=== PATIENT | male | born 1940 | race Caucasian/White ===

== ENCOUNTER 2016-12-13 11:24 | Inpatient (IN) | payer MEDICARE, OTHER ==
[~2016-12-13] VITALS: Ht 175.3 cm; Wt 71.2 kg
[~2016-12-13 11:24] MED LIST: ATOR10TA PO; FLUC100T8 PO; HYDR-3326 PO; ZOLP5TAB2 PO
--- NOTE | 2016-12-13 11:30 | NUR ---
BBRA FROM STREET: ETOH. PT STATES "DTs". NAD NOTED, VSS, RESP EVEN AND UNLABORED, WAITING FOR MD BARROS.
--- NOTE | 2016-12-13 12:20 | NUR ---
PA AT BS.
--- NOTE | 2016-12-13 12:41 | NUR ---
BLOOD SUGAR CHECKED - 138
--- NOTE | 2016-12-13 12:46 | NUR ---
CALLED MISSING PERSON DEPARTMENT, TO REPORT PARKENCE A POSIBLE FOUND MISSING PERSON. SHE STATES SHE WILL CALL FAMILY; I PROVIDED OUR ER # , SHE WILL FOLLOW UP
[2016-12-13 12:56] LABS: BASOPHILS % (AUTO) 0.4 % (0.0-2.0); EOSINOPHILS # (AUTO) 0.2 /CMM (0.0-0.7); EOSINOPHILS % (AUTO) 3.7 % (0.0-6.0); HEMATOCRIT 44 % (39-51); HEMOGLOBIN 14.2 g/dL (13.5-17.5); LYMPHOCYTES # (AUTO) 2.1 /CMM (0.8-4.8); LYMPHOCYTES % (AUTO) 32.6 % (20.0-44.0); MEAN CORPUSCULAR HEMOGLOBIN 27 PG (26.0-33.0); MEAN CORPUSCULAR HGB CONC 32 g/dl (31.0-36.0); MEAN CORPUSCULAR VOLUME 84 fL (80-96); MONOCYTES # (AUTO) 0.5 /CMM (0.1-1.30); MONOCYTES % (AUTO) 7.7 % (2.0-12.0); NEUTROPHILS # (AUTO) 3.7 /CMM (1.8-8.9); NEUTROPHILS % (AUTO) 55.6 % (43.0-81.0); PLATELET COUNT (AUTO) 381 /CMM (150-450); RDW COEFFICIENT OF VARIATION 13.3 (11.5-15.0); RED BLOOD CELL COUNT(AUTO) 5.23 MIL/uL (4.5-6.0); WHITE BLOOD COUNT (AUTO) 6.5 K/uL (4.3-11.0)
--- NOTE | 2016-12-13 12:57 | NUR ---
RECEIVED A CALL FROM PATIENT'S NIECE, SHE STATES SHE IS ON HER WAY TO [employer] PROCESS EXPERT PATIENT ETA 45 MIN
[2016-12-13 13:08] LABS: ALANINE AMINOTRANSFERASE 35 U/L (12-78); ALBUMIN 3.1 g/dL (3.4-5.0); ALKALINE PHOSPHATASE 71 U/L (46-116); ASPARTATE AMINOTRANSFERASE 31 U/L (15-37); BILIRUBIN,DIRECT 0.1 mg/dL (0.0-0.2); BILIRUBIN,TOTAL 0.3 mg/dL (0.2-1.0); CALCIUM, SERUM 8.4 mg/dL (8.5-10.1); CARBON DIOXIDE 28 mmol/L (21-32); CHLORIDE 104 mmol/L (98-107); GLUCOSE 150 mg/dL (74-106); POTASSIUM 4.5 mmol/L (3.5-5.1); SODIUM SERUM 136 mmol/L (136-145); TOTAL PROTEIN, SERUM 7.6 g/dL (6.4-8.2); UREA NITROGEN, BLOOD 16 mg/dL (7-18)
--- NOTE | 2016-12-13 13:20 | NUR ---
URINE SENT TO LAB.
[2016-12-13 13:46] LABS: APPEARANCE,URINE Clear (CLEAR); BILIRUBIN,URINE Negative (NEGATIVE); BLOOD, URINE Negative Ery/uL (NEGATIVE); COLOR,URINE Yellow (YELLOW); KETONES,URINE Negative (NEGATIVE); LEUKOCYTE ESTERASE ,URINE Negative (NEGATIVE); NITRITE, URINE Negative (NEGATIVE); PROTEIN,URINE Negative (NEGATIVE); UGLUCOSE 100 MG/DL mg/dL (NEGATIVE); UROBILINOGEN,URINE 0.2 EU/dL (0.2)
[2016-12-13] MEDS ORDERED: UNK BP MEDICATION (14:23)
[2016-12-13 14:47] LABS: ALCOHOL, BLOOD < 3 mg/dL (0-0); SALICYLATE 0.4 mg/dL (2.8-20.0)
[2016-12-13 15:25] LABS: ACETAMINOPHEN 0 ug/ml (10-30)
--- NOTE | 2016-12-13 15:49 | NUR ---
REPORT GIVEN TO DANIELE.
[2016-12-13 16:00] VITALS: BP 156/80
[2016-12-13] MEDS ORDERED: MAGNESIUM HYDROXIDE 30 ML UDC PO PRN (17:00)
[2016-12-13] MEDS ORDERED: MAG HYDROX/AL HYDROX/SIMETH 30 ML UDC PO PRN (17:00)
[2016-12-13] MEDS ORDERED: ACETAMINOPHEN 325 MG TABLET PO PRN (17:00)
[2016-12-13] MEDS ORDERED: TEMAZEPAM 7.5 MG CAPSULE PO PRN (17:00)
--- NOTE | 2016-12-13 18:34 | NUR ---
GPS RN: ADMITTED PATIENT FROM THE ED, ARRIVE TO THE FLOOR AT 1600 IN THE WHEELCHAIR. PATIENT IS ON HOLD FOR GRAVE DISABILITY. WAS FOUND SLEEPING ON THE STREET AND BIB EMT. UPON FACE TO FACE ASSESSMENT PATIENT IS A/O X3, WITH EPISODES OF CONFUSION, POOR HISTORIAN. PATIENT HAS NO BELONGINGS, NO CONTRABAND, BODY CHECK DONE, PICTURES TAKEN AND DOCUMENTED IN THE CHART. PATIENT REFUSED TO SIGN ADMITTING PAPERS, HOWEVER COOPERATIVE OTHERWISE. PATIENT'S NIECE, BISHNU IS PRESENT DURING ADMISSION. DR. YOST IS IN THE UNIT, ADMITTING ORDERS RECEIVED AND CARRIED OUT. DR. GREENWOOD MADE AWARE TO RECONCILE MEDICATION. WOUND CONSULT ORDERED, PATIENT'S VS STABLE, NO SS OF ACUTE DISTRESS, NO AGITATION. CONTINUE TO MONITOR THE PATIENT AND ENDORSE TO THE UPCOMING SHIFT.
[2016-12-13 20:00] VITALS: BP_SYST 118; BP_SYST 166; BP_DIAS 67; BP_DIAS 81
[2016-12-13] MEDS: LORAZEPAM 0.5 MG TABLET PO PRN (20:32)
[2016-12-13] MEDS: QUETIAPINE FUMARATE 25 MG TABLET PO SCH (21:52)
[2016-12-14 08:00] VITALS: BP 114/69
[2016-12-14 08:10] LABS: ALANINE AMINOTRANSFERASE 32 U/L (12-78); ALBUMIN 2.8 g/dL (3.4-5.0); ALKALINE PHOSPHATASE 69 U/L (46-116); ASPARTATE AMINOTRANSFERASE 26 U/L (15-37); BILIRUBIN,TOTAL 0.4 mg/dL (0.2-1.0); CALCIUM, SERUM 8.3 mg/dL (8.5-10.1); CARBON DIOXIDE 27 mmol/L (21-32); CHLORIDE 106 mmol/L (98-107); CREATININE 1.1 mg/dL (0.6-1.3); GLUCOSE 133 mg/dL (74-106); POTASSIUM 4.1 mmol/L (3.5-5.1); SODIUM SERUM 139 mmol/L (136-145); TOTAL PROTEIN, SERUM 6.8 g/dL (6.4-8.2); UREA NITROGEN, BLOOD 16 mg/dL (7-18)
[2016-12-14 08:27] LABS: CHOLESTEROL 155 mg/dL (<200); HDL CHOLESTEROL 40 mg/dL (40-60); LDL 98 mg/dL (0-99); TRIGLYCERIDES 129 mg/dL (30-150)
[2016-12-14] MEDS: ESCITALOPRAM OXALATE (10 MG) 10 MG TABLET PO SCH (09:33)
[2016-12-14] MEDS: Z GUARD REMEDY 2 OZ OINT TP SCH (09:33)
[2016-12-14 16:00] VITALS: BP 115/78
[2016-12-14 20:00] VITALS: BP 131/87
[2016-12-14] MEDS: QUETIAPINE FUMARATE 25 MG TABLET PO SCH (21:40)
--- NOTE | 2016-12-15 00:43 | NUR ---
Pt has been with flat affect & depressed mood but compliant with care w/o any promptings.
--- NOTE | 2016-12-15 00:44 | NUR ---
Pt has had one incident of loose BM so far on this shift & he is being monitored for the possibility of having diarrhea.
[2016-12-15 07:58] VITALS: BP 137/60
[2016-12-15] MEDS: ESCITALOPRAM OXALATE (10 MG) 10 MG TABLET PO SCH (08:29)
[2016-12-15] MEDS: Z GUARD REMEDY 2 OZ OINT TP SCH (08:29)
--- NOTE | 2016-12-15 14:51 | NUR ---
[id number]: NOTIFIED DR. GREENWOOD ABOUT MED RECONCILIATION NEEDS TO BE DONE. DR. GREENWOOD IS AWARE.
[2016-12-15 16:00] VITALS: BP 121/58
[2016-12-15] MEDS: NYSTATIN CREAM 15 GM TUBE TP SCH (16:08)
[2016-12-15 20:12] VITALS: BP 150/67
[2016-12-15] MEDS: QUETIAPINE FUMARATE 25 MG TABLET PO SCH (21:11)
[2016-12-16 08:15] VITALS: BP 142/83
[2016-12-16] MEDS: ESCITALOPRAM OXALATE (10 MG) 10 MG TABLET PO SCH (09:21)
[2016-12-16] MEDS: NYSTATIN CREAM 15 GM TUBE TP SCH ×2 (09:26→16:43)
[2016-12-16] MEDS: Z GUARD REMEDY 2 OZ OINT TP SCH (09:27)
--- NOTE | 2016-12-16 10:00 | NUR ---
[id number]: DR. GREENWOOD WANTS LIPID PANEL DONE FIRST. TO HOLD NORCO 5/325 MG PO Q6HR PRN AND LIPITOR 10 MG PO QHS.
[2016-12-16 10:44] LABS: CHOLESTEROL 181 mg/dL (<200); HDL CHOLESTEROL 40 mg/dL (40-60); LDL 118 mg/dL (0-99); TRIGLYCERIDES 166 mg/dL (30-150)
--- NOTE | 2016-12-16 11:34 | NUR ---
[id number]: NOTIFIED DR. GREENWOOD ABOUT LAB RESULTS ON 12/16/16: TRIGLYCERIDES= 166, LDL CHOLESTEROL MEASURED= 118. DR. GREENWOOD ALSO WANTS TO CONTINUE TO HOLD THE NORCO 5/325 MG AND LIPITOR 10 MG.
--- NOTE | 2016-12-16 15:40 | NUR ---
Initial Discharge Plan: Per patient, he resides alone in a house in [place]; [address]. [facility] [place] [address] / He could not recall his telephone number. He wishes to return home upon discharge. SW editorial intern left a message on Pts brothers phone . SW editorial intern encouraged pts brother to reach out to his assigned SW should he have any questions. SW to communicate with Patients brother Isaias Choi regarding most appropriate discharge plan. Patient will be provided with substance abuse referrals and smoking cessation resources prior to discharge. SW to help form a safe and proper discharge.
[2016-12-16 16:03] VITALS: BP 140/80
--- NOTE | 2016-12-16 17:50 | NUR ---
[id number]: NOTIFIED DR. GREENWOOD HEMOGLOBIN A1C = 8.3. PENDING RETURN PHONE CALL.
[2016-12-16] MEDS ORDERED: DEXTROSE 50%-WATER 50 ML DISP.SYRIN IV PRN (19:00)
[2016-12-16 19:53] VITALS: BP 142/83
[2016-12-16 20:00] VITALS: BP 145/89
[2016-12-16 20:09] VITALS: BP 145/89
[2016-12-16] MEDS: METFORMIN 500 MG TABLET PO SCH (20:25)
[2016-12-16] MEDS: BLOOD SUGAR DIAGNOSTIC 1 EACH STRIP IN SCH (21:58)
[2016-12-16] MEDS ORDERED: QUETIAPINE FUMARATE 25 MG TABLET PO SCH (22:00)
[2016-12-16] MEDS: INSULIN REGULAR, HUMAN 100 UNIT/ML 3 ML VIAL SQ PRN (22:05)
[2016-12-17 08:00] VITALS: BP 103/77
[2016-12-17] MEDS: METFORMIN 500 MG TABLET PO SCH ×2 (08:57→16:23)
[2016-12-17] MEDS: NYSTATIN CREAM 15 GM TUBE TP SCH ×2 (08:57→16:24)
[2016-12-17] MEDS: BLOOD SUGAR DIAGNOSTIC 1 EACH STRIP IN SCH ×4 (08:57→21:30)
[2016-12-17] MEDS: ESCITALOPRAM OXALATE (10 MG) 10 MG TABLET PO SCH (08:57)
[2016-12-17] MEDS: INSULIN REGULAR, HUMAN 100 UNIT/ML 3 ML VIAL SQ PRN ×4 (09:01→21:50)
[2016-12-17] MEDS: Z GUARD REMEDY 2 OZ OINT TP SCH (09:01)
--- NOTE | 2016-12-17 09:01 | NUR ---
[id number]: BLOOD SUGAR IS 140 MG/DL AND GAVE 2 UNITS OF REGULAR INSULIN
--- NOTE | 2016-12-17 13:02 | NUR ---
YUS-HS-PERXU; BLOOD SUGAR IS 181 MG/DL AND GAVE 3 UNITS OF REGULAR INSULIN.
[2016-12-17] MEDS: HYDROGEL DRESSING 90 GM TUBE TP SCH (15:10)
[2016-12-17 15:42] VITALS: BP 128/81
--- NOTE | 2016-12-17 17:27 | NUR ---
[id number]: BLOOD SUGAR IS 142 MG/DL AND GAVE 2 UNITS OF REGULAR INSULIN
[2016-12-17 19:58] VITALS: BP 132/61
[2016-12-17] MEDS ORDERED: QUETIAPINE FUMARATE 25 MG TABLET PO SCH (22:00)
[2016-12-18] MEDS: INSULIN REGULAR, HUMAN 100 UNIT/ML 3 ML VIAL SQ PRN ×4 (08:24→21:13)
[2016-12-18] MEDS: LORAZEPAM 0.5 MG TABLET PO PRN (08:25)
[2016-12-18] MEDS: BLOOD SUGAR DIAGNOSTIC 1 EACH STRIP IN SCH ×4 (08:25→21:07)
[2016-12-18] MEDS: HYDROGEL DRESSING 90 GM TUBE TP SCH (08:25)
[2016-12-18] MEDS: NYSTATIN CREAM 15 GM TUBE TP SCH ×2 (08:25→16:53)
[2016-12-18] MEDS: Z GUARD REMEDY 2 OZ OINT TP SCH (08:25)
[2016-12-18] MEDS: METFORMIN 500 MG TABLET PO SCH ×2 (08:26→16:57)
[2016-12-18] MEDS: ESCITALOPRAM OXALATE (10 MG) 10 MG TABLET PO SCH (08:28)
[2016-12-18 08:30] VITALS: BP 132/81
--- NOTE | 2016-12-18 14:34 | NUR ---
lumber yard worker faxed initial review packet to [address] [place] [address] ( / ) lumber yard worker will follow-up.
[2016-12-18 16:05] VITALS: BP 150/90
--- NOTE | 2016-12-18 19:30 | NUR ---
GPS RN NOTE, RECEIVED PATIENT AWAKE AND IN BED, NO S/S OR COMPLAINTS OF PAIN AT THIS TIME. PATIENT IS DISPLAYING NO S/S OF APPARENT DISTRESS AT THIS TIME. PATIENT BREATHING IS UNLABORED WITH EQUAL RISE AND FALL OF THE CHEST. PATIENT IS ALERT AND ORIENTED X 3 ON ROOM AIR WITH A SPO2 OF 96%. PATIENT IS CALM, ANXIOUS AT TIMES , COMPLIANT WITH MEDICATION, COOPERATIVE, HAS EPISODES OF CONFUSION AT TIMES, AND NEEDS REORIENTATION. PATIENT DENIES SUICIDE IDEATIONS AND HOMICIDAL IDEATIONS AT THIS TIME. PATIENT EDUCATED ON THE USE OF THE CALL [place]. PATIENT BED SIDE RAILS UP X2 FOR SAFETY, BED IS LOCKED AND LOW, AND I WILL CONTINUE TO MONITOR AND MAINTAIN SAFETY Q15MIN WITH THE HELP OF STAFF.
[2016-12-18 19:36] VITALS: BP 143/80
[2016-12-18] MEDS: QUETIAPINE FUMARATE 100 MG TABLET PO SCH (21:08)
--- NOTE | 2016-12-18 21:08 | NUR ---
GPS RN NOTE, PATIENT HAS A COMPLAINT OF NOT BEING ABLE TO SLEEP AND IS REQUESTING RESTORIL AT THIS TIME. PATIENT VITAL SIGNS ARE STABLE. GAVE RESTORIL 7.5 MG PO HS ORDERED. WILL REASSESS FOR INSOMNIA AND I WILL CONTINUE TO MONITOR THIS PATIENT.
--- NOTE | 2016-12-18 21:12 | NUR ---
GPS RN NOTE, PERFORMED ACCU CHECK ON PATIENT WITH A BLOOD SUGAR RESULT OF 159. GAVE 2 UNITS OF REGULAR INSULIN PER SLIDING SCALE. WILL CONTINUE TO MONITOR THIS PATIENT.
[2016-12-19] MEDS: NYSTATIN CREAM 15 GM TUBE TP SCH ×2 (07:50→16:28)
[2016-12-19] MEDS: HYDROGEL DRESSING 90 GM TUBE TP SCH (07:51)
[2016-12-19] MEDS: BLOOD SUGAR DIAGNOSTIC 1 EACH STRIP IN SCH ×4 (07:51→21:47)
[2016-12-19] MEDS: Z GUARD REMEDY 2 OZ OINT TP SCH (07:51)
[2016-12-19] MEDS: INSULIN REGULAR, HUMAN 100 UNIT/ML 3 ML VIAL SQ PRN ×4 (07:53→21:29)
[2016-12-19] MEDS: ESCITALOPRAM OXALATE (10 MG) 10 MG TABLET PO SCH (08:03)
[2016-12-19] MEDS: METFORMIN 500 MG TABLET PO SCH ×2 (08:03→16:27)
[2016-12-19 16:00] VITALS: BP 148/84
--- NOTE | 2016-12-19 16:23 | NUR ---
RN NOTES PATIENT IS REFUSING BLOOD SUGAR CHECK AT THIS TIME. STATES "THAT MEDICAL [facility]Y JUST CHECKED IT, I'M NOT DOING IT AGAIN." EXPLAINED TO THE PATIENT THAT NO ONE HAD TAKEN HIS BLOOD SUGAR FOR DINNER, BUT PATIENT STILL REFUSED AFTER TELLING HIM THAT HIS SUGAR MAY BE HIGH. WILL CONTINUE TO MONITOR. Addendum: 12/19/16 at 1629 by ALYSSA SOLANO RN PATIENT ALSO REFUSING EVENING DOSE OF NYSTATIN CREAM.
--- NOTE | 2016-12-19 17:27 | NUR ---
RN NOTES PATIENT IS STILL REFUSING ACCU CHECK AT THIS TIME. BUT ACCEPTING ORAL MEDICATIONS.
[2016-12-19 20:00] VITALS: BP_SYST 132; BP_SYST 146; BP_DIAS 75; BP_DIAS 78
[2016-12-19] MEDS ORDERED: QUETIAPINE FUMARATE 100 MG TABLET ONE (22:14)
[2016-12-19] MEDS: QUETIAPINE FUMARATE 100 MG TABLET PO SCH (22:19)
--- NOTE | 2016-12-20 07:15 | NUR ---
RN NOTES PT IS IN BED, RESTING COMFORTABLY. PT ON RA, RESPIRATIONS ARE EVEN AND UNLABORED. SAFETY MEASURES ARE IN PLACE. WILL CONTINUE TO MONITOR
[2016-12-20] MEDS: BLOOD SUGAR DIAGNOSTIC 1 EACH STRIP IN SCH ×4 (07:30→22:00)
[2016-12-20 08:00] VITALS: BP 147/94
[2016-12-20] MEDS: ESCITALOPRAM OXALATE (10 MG) 10 MG TABLET PO SCH (09:10)
[2016-12-20] MEDS: METFORMIN 500 MG TABLET PO SCH ×2 (09:10→16:51)
[2016-12-20] MEDS: NYSTATIN CREAM 15 GM TUBE TP SCH ×2 (09:11→16:54)
[2016-12-20] MEDS: HYDROGEL DRESSING 90 GM TUBE TP SCH (09:11)
[2016-12-20] MEDS: Z GUARD REMEDY 2 OZ OINT TP SCH (09:39)
[2016-12-20 12:02] LABS: BASOPHILS % (AUTO) 0.5 % (0.0-2.0); EOSINOPHILS # (AUTO) 0.2 /CMM (0.0-0.7); EOSINOPHILS % (AUTO) 3.6 % (0.0-6.0); HEMATOCRIT 41 % (39-51); HEMOGLOBIN 13.3 g/dL (13.5-17.5); LYMPHOCYTES # (AUTO) 2.3 /CMM (0.8-4.8); LYMPHOCYTES % (AUTO) 37.1 % (20.0-44.0); MEAN CORPUSCULAR HEMOGLOBIN 28 PG (26.0-33.0); MEAN CORPUSCULAR HGB CONC 33 g/dl (31.0-36.0); MEAN CORPUSCULAR VOLUME 84 fL (80-96); MONOCYTES # (AUTO) 0.6 /CMM (0.1-1.30); NEUTROPHILS % (AUTO) 48.8 % (43.0-81.0); PLATELET COUNT (AUTO) 335 /CMM (150-450); RDW COEFFICIENT OF VARIATION 14.6 (11.5-15.0); RED BLOOD CELL COUNT(AUTO) 4.85 MIL/uL (4.5-6.0); WHITE BLOOD COUNT (AUTO) 6.1 K/uL (4.3-11.0)
[2016-12-20 12:17] LABS: CALCIUM, SERUM 8.7 mg/dL (8.5-10.1); CARBON DIOXIDE 31 mmol/L (21-32); CHLORIDE 104 mmol/L (98-107); CREATININE 1.2 mg/dL (0.6-1.3); GLUCOSE 154 mg/dL (74-106); POTASSIUM 4.4 mmol/L (3.5-5.1); SODIUM SERUM 138 mmol/L (136-145); UREA NITROGEN, BLOOD 21 mg/dL (7-18)
[2016-12-20] MEDS: INSULIN REGULAR, HUMAN 100 UNIT/ML 3 ML VIAL SQ PRN (12:23)
[2016-12-20 16:00] VITALS: BP 134/77
[2016-12-20 16:10] VITALS: BP 134/77
--- NOTE | 2016-12-20 18:09 | NUR ---
RN NOTES PT IS IN BED, SITTING UP, AWAKE AND ALERT. PT COMPLIANT WITH MEDICATIONS, ACCUCHECKS AND WOUND CARE. PT ABLE TO AMBULATE INDEPENDENTLY. WILL ENDORSE TO [employer] ACCESSORIES ATTACHER RN FOR CONTINUITY OF CARE.
--- NOTE | 2016-12-20 19:52 | NUR ---
GPS/RN NOTE: PATIENT LYING IN BED, CALM AND QUIET, INITIATES INTERACTION. NO APPARENT DISTRESS NOTED.
[2016-12-20] MEDS: QUETIAPINE FUMARATE 100 MG TABLET PO SCH (23:59)
[2016-12-21 08:00] VITALS: BP 118/67
[2016-12-21] MEDS: BLOOD SUGAR DIAGNOSTIC 1 EACH STRIP IN SCH ×4 (08:15→22:12)
--- NOTE | 2016-12-21 08:16 | NUR ---
MOLECULAR BIOLOGY PROFESSOR-NOTES PATIENT BLOOD SUGAR WAS 126MG/DL,NO COVERAGE GIVEN.
[2016-12-21] MEDS: METFORMIN 500 MG TABLET PO SCH ×2 (08:31→17:10)
[2016-12-21] MEDS: ESCITALOPRAM OXALATE (10 MG) 10 MG TABLET PO SCH (08:31)
[2016-12-21] MEDS: Z GUARD REMEDY 2 OZ OINT TP SCH (08:32)
[2016-12-21] MEDS: NYSTATIN CREAM 15 GM TUBE TP SCH ×2 (09:18→17:34)
[2016-12-21] MEDS: HYDROGEL DRESSING 90 GM TUBE TP SCH (09:18)
--- NOTE | 2016-12-21 09:30 | NUR ---
RADIO PERFORMER-NOTES DID WOUND DRESSING CHANGE ON LEFT HEEL.
--- NOTE | 2016-12-21 11:43 | NUR ---
GANG BORE OPERATOR-NOTES PATIENT BLOOD SUGAR WAS 123 MG/DL,NO COVERAGE GIVEN.
[2016-12-21 16:00] VITALS: BP 135/77
--- NOTE | 2016-12-21 17:46 | NUR ---
BOILER TUBE REAMER-NOTES PATIENT BLOOD SUGAR WAS 99 MG/DL,NO COVERAGE GIVEN.
--- NOTE | 2016-12-21 19:30 | NUR ---
GPS/OUTSIDE SALES REPRESENTATIVE; RECEIVED PT IN BED ON HIS LT SIDE SLEEPING AT THIS TIME WITH HIS EYE GLASS ON. BREATHING NON LABORED AND EVEN. BED ON LOWER POSITION AND LOCKED FOR SAFETY. UPPER PART OF BED SIDE RAIL IS UP. WILL CONTINUE TO MONITOR.
[2016-12-21 20:00] VITALS: BP 136/80
[2016-12-21] MEDS: QUETIAPINE FUMARATE 100 MG TABLET PO SCH ×2 (21:42→21:44)
--- NOTE | 2016-12-21 22:00 | NUR ---
GPS/[employer]BON ELECT[employer]ODES SUPERVISOR; BS 125 NO COVERAGE GIVEN.
--- NOTE | 2016-12-22 06:26 | NUR ---
GPS/WEB OPERATIONS LEAD; SLEPT FOR 8 HOURS LAST NIGHT. BREATHING NON LABORED. MADE NO C/O . WILL CONTINUE TO MONITOR.
[2016-12-22 08:01] VITALS: BP 107/62
[2016-12-22] MEDS: ESCITALOPRAM OXALATE (10 MG) 10 MG TABLET PO SCH (08:40)
[2016-12-22] MEDS: BLOOD SUGAR DIAGNOSTIC 1 EACH STRIP IN SCH ×4 (08:53→21:52)
[2016-12-22] MEDS: METFORMIN 500 MG TABLET PO SCH ×2 (08:53→17:05)
[2016-12-22] MEDS: NYSTATIN CREAM 15 GM TUBE TP SCH ×2 (09:00→16:37)
[2016-12-22] MEDS: HYDROGEL DRESSING 90 GM TUBE TP SCH (09:02)
[2016-12-22] MEDS: Z GUARD REMEDY 2 OZ OINT TP SCH (09:02)
[2016-12-22] MEDS: INSULIN REGULAR, HUMAN 100 UNIT/ML 3 ML VIAL SQ PRN (13:04)
[2016-12-22 15:37] VITALS: BP 128/80
--- NOTE | 2016-12-22 15:59 | NUR ---
GPS RN NOTES WOUND DRESSING CHANGE AND WOUND CARE WAS PERFORMED PER ORDER.
--- NOTE | 2016-12-22 19:30 | NUR ---
GPS/RN NOTES PT. HAD AN EPISODE OF DIARRHEA. FOUND PT.'S WATERY STOOL ON THE FLOOR WITH PT. IN THE RESTROOM.
[2016-12-22 19:53] VITALS: BP_SYST 145; BP_SYST 149; BP_DIAS 75; BP_DIAS 90
[2016-12-22 20:05] VITALS: BP 145/90
[2016-12-22] MEDS: QUETIAPINE FUMARATE 100 MG TABLET PO SCH (21:52)
[2016-12-23 08:16] VITALS: BP 151/94
[2016-12-23] MEDS: ESCITALOPRAM OXALATE (10 MG) 10 MG TABLET PO SCH (08:30)
[2016-12-23] MEDS: METFORMIN 500 MG TABLET PO SCH (08:30)
[2016-12-23] MEDS: BLOOD SUGAR DIAGNOSTIC 1 EACH STRIP IN SCH ×2 (08:30→12:58)
[2016-12-23] MEDS: HYDROGEL DRESSING 90 GM TUBE TP SCH (09:03)
[2016-12-23] MEDS: NYSTATIN CREAM 15 GM TUBE TP SCH (09:03)
[2016-12-23] MEDS: Z GUARD REMEDY 2 OZ OINT TP SCH (09:04)
--- NOTE | 2016-12-23 13:50 | NUR ---
PATIENT CLEARED FOR DISCHARGE TO [facility] ([address] [place] [address]) [address] YOST AND DR STRICKLAND. MEDICATIONS RECONCILED BT BOTH DR'S D/C PACKET, MEDICATIONS AND AFTERCARE PLAN EXPLAINED TO PATIENT VERBALIZED UNDERSTANDING. BELONGINGS RETURNED AND SIGNED FOR, WOUND PHOTOS TAKEN LAST NIGHT, REPORT CALLED TO FACILITY, SPOKE WITH MILAGROS. PATIENT DENIES SI/HI/AH UPON DISCHARGE, PSYCHIATRIC TREATMENT PLANS MET,LEFT UNIT CALM, COOPERATIVE, NO DISTRESS WITH TRANSPORT AT SIDE.
--- NOTE | 2016-12-23 14:33 | NUR ---
Discharge Note: Patient will be discharged to [facility] [address] [place] [address]. Via med response. Patients niece Carol ([phone]) has been notified. Patient and patient's niece were both agreeable with the discharge plan. Patient's mood and affect were calm and appropriate. Patient denied suicidal and homicidal ideations. Patient will follow-up with psychiatrist Dr. Perez ([phone]) at the facility on 12/31/16 at 1:00Pm in which he will discuss his cocaine use. For smoking cessation patient was referred for a phone meeting with [facility] on 12/29/16 at 9:30am [phone] PIN: [id number] with [facility] [place]. Facilitated info to IDT team who are in agreement with discharge arrangement. The multidisciplinary exitcare form was done, printed, signed, and given to the patient.
== END 2016-12-23 19:44 | DRG 876 ==
LOC: ER 11:25 → GPS 15:23
PROVIDERS: ADMIT Psychiatry & Neurology Psychiatry
PROC: 0JBR0ZZ Excision of Left Foot Subcutaneous Tissue and Fascia, Open Approach (ICD-10-PCS; principal; 2016-12-16)
DX: F32.3 Major depressive disorder, single episode, severe with psychotic features (principal); N17.0 Acute kidney failure with tubular necrosis; E11.65 Type 2 diabetes mellitus with hyperglycemia; L97.329 Non-pressure chronic ulcer of left ankle with unspecified severity; E11.42 Type 2 diabetes mellitus with diabetic polyneuropathy; I10 Essential (primary) hypertension; E77.8 Other disorders of glycoprotein metabolism; E78.5 Hyperlipidemia, unspecified; E88.09 Other disorders of plasma-protein metabolism, not elsewhere classified; F17.210 Nicotine dependence, cigarettes, uncomplicated; Z59.0 Homelessness; L98.8 Other specified disorders of the skin and subcutaneous tissue; Z73.6 Limitation of activities due to disability; S30.810A Abrasion of lower back and pelvis, initial encounter; X58.XXXA Exposure to other specified factors, initial encounter; Y93.9 Activity, unspecified; Y92.9 Unspecified place or not applicable; I83.023 Varicose veins of left lower extremity with ulcer of ankle; E11.621 Type 2 diabetes mellitus with foot ulcer; L30.4 Erythema intertrigo
CPT/HCPCS: 36415; 80048-TC; 80053-TC; 80061-TC; 80076-TC; 80305; 81000-TC; 82962-TC; 85025-TC; 87081-TC; A4606; A6248; A6402; A6403; G0480; J1815; Z7610